=== PATIENT | female | born 1965 | race Caucasian/White ===

== ENCOUNTER 2018-06-24 14:00 | Outpatient (RCR) | payer OTHER | END 2018-07-03 | LOC: OT 14:00 | PROVIDERS: ATTEND Orthopaedic Surgery Hand Surgery | DX: M65.4 Radial styloid tenosynovitis [de Quervain] (principal) | CPT/HCPCS: 97010; 97022; 97035 ×2; 97110 ×2; 97165; G8987; G8988 ==

== ENCOUNTER 2018-07-15 14:00 | Outpatient (RCR) | payer OTHER | END 2018-08-02 | LOC: OT 14:00 | PROVIDERS: ATTEND Orthopaedic Surgery Hand Surgery | DX: M65.4 Radial styloid tenosynovitis [de Quervain] (principal) | CPT/HCPCS: 97139 ==

== ENCOUNTER 2025-04-26 17:00 | Outpatient (RCR) | payer BC | END 2025-05-02 | LOC: PT 17:00 | PROVIDERS: ATTEND Student in an Organized Health Care Education/Training Program | DX: S32.030A Wedge compression fracture of third lumbar vertebra, initial encounter for closed fracture (principal); S32.050A Wedge compression fracture of fifth lumbar vertebra, initial encounter for closed fracture; S22.080A Wedge compression fracture of T11-T12 vertebra, initial encounter for closed fracture ==

== ENCOUNTER 2025-05-19 17:00 | Outpatient (RCR) | payer BC | END 2025-06-02 | LOC: PT 17:00 | PROVIDERS: ATTEND Student in an Organized Health Care Education/Training Program | DX: S32.030A Wedge compression fracture of third lumbar vertebra, initial encounter for closed fracture (principal); S32.050A Wedge compression fracture of fifth lumbar vertebra, initial encounter for closed fracture; S22.080A Wedge compression fracture of T11-T12 vertebra, initial encounter for closed fracture ==